=== PATIENT | male | born 1990 | race Caucasian/White ===

== ENCOUNTER 2018-03-11 10:00 | Emergency (ER) | payer OTHER ==
[~2018-03-11] VITALS: Ht 177.8 cm; Wt 77.3 kg
[2018-03-11 10:05] VITALS: TEMP 98.6
[2018-03-11] MEDS ORDERED: ALLEGRA 60MG TA60 MG PO (10:07)
[2018-03-11] MEDS ORDERED: PRILOSEC 20MG20 MG PO (10:07)
[2018-03-11] MEDS ORDERED: ZITHROMAX Z PA250 MG PO (10:48)
[2018-03-11 11:04] VITALS: BP 126/65; PULSE 77
== END 2018-03-11 11:04 | disposition home or self-care (01) ==
LOC: COL.ER 10:00
DX: J02.9 Acute pharyngitis, unspecified (principal)

== ENCOUNTER 2018-05-14 08:44 | Day surgery (SDC) | payer OTHER ==
[~2018-05-14] VITALS: Ht 177.8 cm; Wt 76.1 kg
[~2018-05-14 08:44] MED LIST: ALLEGRA 60MG TA60 MG PO; PRILOSEC 20MG20 MG PO; ZITHROMAX Z PA250 MG PO
[2018-05-14 09:26] VITALS: BP 117/74; PULSE 46; TEMP 97.6
[2018-05-14 10:35] VITALS: BP 108/74; PULSE 61; TEMP 97.7
--- NOTE | 2018-05-14 10:35 | NUR ---
PT TO [facility] VIA CART FROM ENDO ROOM, AWAKE AND ALERT, WALKED TO CHAIR, FRIEND IN ROOM WITH PT. CALL LIGHT IN REACH, NO C/O
[2018-05-14 10:50] VITALS: BP 114/75; PULSE 60
--- NOTE | 2018-05-14 10:50 | NUR ---
PT TAKES WATER AND MUFFIN, NO DIFFIUCLTY SWALLOWING.
[2018-05-14 11:05] VITALS: BP 108/72; PULSE 56
[2018-05-14 11:20] VITALS: BP 109/74; PULSE 56
--- NOTE | 2018-05-14 11:20 | NUR ---
DR BERRIOS SEE PT AND GIRLFRIEND. REVIEWED DISCHARGE INST. TO PT WITH VERBAL UNDERSTANDING. IV D'CD INTACT. PT UP IN ROOM DRESSED. DISCHARGED VIA W/C TO CAR WITH FRIEND
== END 2018-05-14 11:30 | disposition home or self-care (01) ==
LOC: SDCO 08:44
DX: K21.0 Gastro-esophageal reflux disease with esophagitis (principal); R10.13 Epigastric pain
CPT/HCPCS: J2250; J3010; J7030